=== PATIENT | male | born 1960 | race Caucasian/White ===

== ENCOUNTER 2024-01-13 09:36 | Emergency (ER) | payer BC ==
[~2024-01-13] VITALS: Ht 180.3 cm; Wt 73.3 kg
[2024-01-13] MEDS ORDERED: OFLOSO (11:04)
[2024-01-13] MEDS ORDERED: METF10004 PO (11:05)
[2024-01-13] MEDS ORDERED: [UNRECOGNIZED DRUG - CODE] PO (11:06)
[2024-01-13] MEDS ORDERED: GLIM4TAB5 PO (11:07)
[2024-01-13] MEDS ORDERED: LISI40TA4 PO (11:07)
[2024-01-13] MEDS ORDERED: CARB25TA31 PO (11:07)
[2024-01-13] MEDS ORDERED: PANT40TA29 PO (11:08)
[2024-01-13 11:56] LABS: BASO % 0.3 % (0.0-1.0); EOS # 0.1 10^3/uL (0.0-0.5); EOS % 0.8 % (0.0-3.0); HEMATOCRIT 38.8 % (42.0-52.0); HEMOGLOBIN 12.2 g/dl (13.5-17.5); LYMPH # 1.2 10^3/uL (1.5-5.0); LYMPH % 13.5 % (24.0-44.0); MEAN CORPUSCULAR HEMOGLOBIN 26.6 pg (27.0-33.0); MEAN CORPUSCULAR HGB CONC 31.4 g/dl (32.0-36.5); MEAN CORPUSCULAR VOLUME 84.5 fl (80.0-96.0); MONO # 0.8 10^3/uL (0.0-0.8); MONO % 8.5 % (2.0-8.0); NEUTROPHILS # 6.8 10^3/uL (1.5-8.5); NEUTROPHILS % 76.3 % (36.0-66.0); PLATELET COUNT, AUTOMATED 317 10^3/uL (150-450); RED BLOOD COUNT 4.59 10^6/uL (4.30-6.10)
[2024-01-13] MEDS ORDERED: ISOVUE-370 76% 100ML VIAL As Ordered ONE (11:56)
[2024-01-13 12:05] LABS: ERYTHROCYTE SEDIMENTATION RATE 29 mm/hr (0-20)
[2024-01-13] MEDS: KETOROLAC 30 MG/ML 1ML VIAL IV ONE (12:11)
[2024-01-13] MEDS ORDERED: AMOX875T2 PO (12:45)
[2024-01-13 13:04] VITALS: BP 177/84; TEMP 97.7; O2SAT 100
== END 2024-01-13 13:06 | disposition home or self-care (01) ==
LOC: M ED 09:36
DX: H60.11 Cellulitis of right external ear (principal); H66.41 Suppurative otitis media, unspecified, right ear; I10 Essential (primary) hypertension; E11.9 Type 2 diabetes mellitus without complications; G20.B2 Parkinson's disease with dyskinesia, with fluctuations; Z88.8 Allergy status to other drugs, medicaments and biological substances; Z79.2 Long term (current) use of antibiotics; Z79.4 Long term (current) use of insulin; Z79.811 Long term (current) use of aromatase inhibitors; Z79.899 Other long term (current) drug therapy
CPT/HCPCS: 70487; 80047; 85025; 85652; 86140; 96374; 99284; J1885; Q9967